=== PATIENT | male | born 1985 | race Asian ===

== ENCOUNTER → 2017-08-16 | Outpatient (CLI) | payer OTHER ==
--- NOTE | 2017-08-16 17:02 | DIAGNOSTIC IMAGING REPORT ---
CHEST 2 VIEWS ROUTINE HISTORY: 32 years-old Male COUGH acute cough COMPARISON: None available TECHNIQUE: PA and lateral views of the chest FINDINGS: Cardiomediastinal and hilar silhouettes are within normal limits. No pneumothorax, pleural effusion, focal airspace consolidation or overt pulmonary edema. Bones of the chest appear grossly intact. IMPRESSION: No acute process. The above report was generated using voice recognition software. It may contain grammatical, syntax or spelling errors. Electronically signed by: Jose Rafael Loera M.D. 08/16/2017 5:00 PM Dictated Date/Time: 08/16/2017 4:59 PM
== END | disposition home or self-care (01) ==
LOC: C.RAD1850 16:46
PROVIDERS: ATTEND Family Medicine
DX: R05 Cough (principal)